=== PATIENT | male | born 1990 | race Hispanic/Latino ===

== ENCOUNTER 2017-09-29 13:02 | Emergency (ER) | payer OTHER ==
[2017-09-29 13:03] VITALS: BMI 23.6
--- NOTE | 2017-09-29 13:26 | ED PDOC ---
Arrival/HPI - General Chief Complaint: Upper Extremity Problem/Injury Time Seen by Provider: 09/29/17 13:25 Historian: Patient - History of Present Illness Narrative History of Present Illness (Text): 09/29/17 13:26 This 26 yo male presents to this ED c/o left hand injury x 3-1/2 hours. Patient stated while removing a tire, an object stroke his hand at work. He noted left hand is tender and swollen at the 5th metacarpal area. Patient is right hand dominant. Denies other complains. Time/Duration: 4-6 hours Symptom Onset: Sudden Quality: Aching Context: Work Past Medical History - Provider Review Nursing Documentation Reviewed: Yes - Infectious Disease Hx of Infectious Diseases: None - Tetanus Immunization Tetanus Immunization: Unknown - Reproductive Currently : No - Past Medical History Past Medical History: No Previous - Musculoskeletal/Rheumatological Hx Falls: No - Psychiatric Hx Depression: No Hx Emotional Abuse: No Hx Physical Abuse: No Hx Substance Use: No - Past Surgical History Past Surgical History: No Previous - Suicidal Assessment Feels Threatened In Home Enviroment: No Family/Social History - Physician Review Nursing Documentation Reviewed: Yes Family/Social History: Other (noncontributory) Smoking Status: Light Smoker < 10 Cigarettes Daily Hx Alcohol Use: No Hx Substance Use: No Hx Substance Use Treatment: No Allergies/Home Meds Allergies/Adverse Reactions: Allergies No Known Allergies Allergy (Verified 09/29/17 13:18) Review of Systems - Review of Systems Constitutional: Normal. absent: Fatigue, Weight Change, Fevers Eyes: Normal ENT: Normal Respiratory: Normal Cardiovascular: Normal Gastrointestinal: Normal Genitourinary Male: Normal Musculoskeletal: Other (see hpi) Skin: Normal Neurological: Normal Endocrine: Normal Hemo/Lymphatic: Normal Psychiatric: Normal Physical Exam Vital Signs Temp Pulse Resp BP Pulse Ox 09/29/17 14:33 98.6 F 88 16 122/78 100 09/29/17 13:15 98.9 F 94 H 18 143/84 98 Temperature: Afebrile Blood Pressure: Normal Pulse: Regular Respiratory Rate: Normal Appearance: Positive for: Well-Appearing, Non-Toxic, Comfortable Pain Distress: None Mental Status: Positive for: Alert and Oriented X 3 - Systems Exam Head: Present: Atraumatic, Normocephalic Pupils: Present: PERRL Extroacular Muscles: Present: EOMI Conjunctiva: Present: Normal Mouth: Present: Moist Mucous Membranes Abdomen: Present: Normal Bowel Sounds. No: Tenderness, Distention, Peritoneal Signs Upper Extremity: Present: NORMAL PULSES, Tenderness, Swelling, Neurovascularly Intact, Capillary Refill < 2s, Other ((+) left dorsal swelling and tender over 5ht metacarpal area. No open wound visualized.). No: Cyanosis, Edema, Deformity Lower Extremity: Present: Normal Inspection, NORMAL PULSES, Normal ROM, Neurovascularly Intact, Capillary Refill < 2 s. No: Edema, CALF TENDERNESS Neurological: Present: GCS=15, CN II-XII Intact, Speech Normal, Motor Func Grossly Intact, Normal Sensory Function, Normal Cerebellar Funct, Gait Normal Skin: Present: Warm, Dry, Normal Color. No: Rashes Psychiatric: Present: Alert, Oriented x 3, Normal Insight, Normal Concentration Medical Decision Making ED Course and Treatment: 09/29/17 14:22 Re-evaluation. Patient feels better. Discussed results and plan with patient who expresses understanding. All questions answered and there is agreement with the plan to discharge home with instructions. Patient stable for discharge. Return if symptoms persist or worsen. Patient was recommended to f/u both pmd and hand specialist. Gutter splint was ordered and revised by me. N/V intact before and after ortho splinting. Arm sling, and ice pack applied. Patient understood plan for f/u. He requested work note. 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 Re-evaluation Time: 14:23 Reassessment Condition: Re-examined, Improved - RAD Interpretation Narrative RAD Interpretations (Text): 09/29/17 14:23 Hand x-rays: (+) non displaced distal 5th metacarpal Fx. no dislocation Radiology Orders: 09/29/17 13:26 HAND LEFT 3 VIEWS ROUTINE [RAD] Stat Disposition/Present on Arrival - Present on Arrival Any Indicators Present on Arrival: No History of DVT/PE: No History of Uncontrolled Diabetes: No Urinary Catheter: No History of Decub. Ulcer: No History Surgical Site Infection Following: None - Disposition Have Diagnosis and Disposition been Completed?: Yes Diagnosis: Closed fracture of fifth metacarpal bone of left hand Disposition: HOME/ ROUTINE Disposition Time: 14:25 Patient Plan: Discharge Patient Problems: Current Active Problems Problem Status Onset Closed fracture of fifth metacarpal bone of left hand Acute Condition: GOOD Discharge Instructions (ExitCare): Boxer Fracture (ED) Additional Instructions: Call private doctor for follow up visit in 1-2 days. Take medication as instructed. Keep hand elevated, ice, rest, sling, splint till clear by hand doctor. Keep hand clean, and dry. return to emergency if pain worsen. Prescriptions: Ibuprofen [Motrin] 600 mg PO Q8 PRN #20 tab PRN Reason: Pain, Severe (8-10) Referrals: Armando Rios MD [Staff Provider] - Follow up with primary Forms: [employer] Connect (Maldivian), WORK NOTE
[2017-09-29 14:34] VITALS: TEMP 98.6; O2SAT 100
--- NOTE | 2017-09-29 14:48 | RAD ---
PROCEDURE: Left Hand Radiographs. HISTORY: pain COMPARISON: None. FINDINGS: BONES: There is an acute nondisplaced fracture in the neck of the 5th metacarpal. Bone alignment and mineralization are normal. JOINTS: The joint spaces are preserved. SOFT TISSUES: Normal. OTHER FINDINGS: None. IMPRESSION: Acute nondisplaced fracture in the neck of the 5th metacarpal.
[2017-09-29 15:02] VITALS: BP 124/80; PULSE 85; RESP 17
== END 2017-09-29 14:40 | disposition home or self-care (01) ==
LOC: ED 13:02
DX: S62.397A Other fracture of fifth metacarpal bone, left hand, initial encounter for closed fracture (principal); W22.8XXA Striking against or struck by other objects, initial encounter; Y93.89 Activity, other specified; Y92.89 Other specified places as the place of occurrence of the external cause; Y99.8 Other external cause status